=== PATIENT | male | born 1990 | race Caucasian/White ===

== ENCOUNTER 2023-01-12 10:21 | Emergency (ER) | payer BC, MEDICAID, SELFPAY ==
[2023-01-12 10:28] VITALS: BP 138/85; PULSE 71; RESP 20; TEMP 36.6; O2SAT 97; BMI 31.7
--- NOTE | 2023-01-12 10:52 | XR_ITS ---
WS: [id number] Exam: XR chest 1V portable [id number] Date/Time of Exam: 01/12/2023 11:37 AM Reason For Exam: chest pain Findings: The lungs are clear and fully expanded. Costophrenic angles are sharp. No infiltrates. Bronchovascula r relief appears normal. Cardiac silhouette is unremarkable. Bony elements are intact. IMPRESSION: Unremarkable chest radiograph.
--- NOTE | 2023-01-12 10:52 | ECG_ITS ---
[facility] Test Date: 2023-01-12 Pat Name: Nitish Matt Department: Room: Gender: Male [employer] Supervisor: : 1990 Requested By: Timothy Hutchins Order Number: [id number] Dave MD: Roge Reyez M.D. Measurements Intervals Bow Rate: 69 P: 51 CT: 133 QRS: 27 QRSD: 92 T: 5 QT: 372 QTc: 399 Interpretive Statements SINUS RHYTHM No previous ECG available for comparison Electronically Signed On 01-13-2023 14:11:42 LEATHER GRADER by Roge Reyez M.D. [email or web address]
[2023-01-12 11:54] LABS: Basophils % 0.4 %; Eosinophils # 0.2 10^3/uL (0.0-0.8); Eosinophils % 2.7 %; Hematocrit 44.6 % (37-53); Lymphocytes # 1.6 10^3/uL (0.8-4.8); Lymphocytes % 22.6 %; Mean Corpuscular HGB Conc 33.2 g/dL (30-55); Mean Corpuscular Volume 84.5 fl (82-101); Mean Platelet Volume 9.5 fL (7.4-10.4); Monocytes # 0.5 10^3/uL (0.2-0.9); Monocytes % 7.6 %; Neutrophils # 4.71 10^3/uL (1.8-7.7); Neutrophils % 66.1 %; Nucleated Red Blood Cells % 0 %; Platelet Count 254 10^3/cmm (157-399); Red Blood Count 5.28 10^6/uL (3.85-5.65); Red Cell Distribution Width 12.4 % (12.1-15.1); White Blood Count 7.12 10^3/uL (3.29-11.43)
[2023-01-12 12:02] VITALS: BP 153/91; PULSE 80; RESP 15; O2SAT 96
[2023-01-12 12:10] LABS: Troponin(5th) Baseline < 6 ng/L (0-15)
[2023-01-12 12:13] LABS: Alanine Aminotransferase 143 U/L (0-41); Albumin Level 4.8 g/dL (3.5-5.2); Alkaline Phosphatase 83 U/L (40-130); Anion Gap 16.7 (5-19); Aspartate Amino Transferase 157 U/L (0-40); Blood Urea Nitrogen 12 mg/dL (6-20); Calcium 9.9 mg/dL (8.5-10.5); Carbon Dioxide 25 mmol/L (22-29); Chloride 101 mmol/L (98-107); Globulin 2.1 g/dL (1.3-4.6); Glomerular Filtration Rate 87.2 mL/min (90-130); Glucose 98 mg/dL (65-115); Osmolality Calculated 286 mOsm/kg (285-295); Potassium 4.7 mmol/L (3.5-5.1); Sodium 138 mmol/L (136-145); Total Bilirubin 0.8 mg/dL (0.15-1.2); Total Protein 6.9 g/dL (6.6-8.7)
--- NOTE | 2023-01-12 12:23 | W.ED.CHESTPA ---
HPI - Chest Pain General: Chief Complaint: Chest Pain Stated Complaint: chest pain Time Seen by Provider: 01/12/23 11:47 Source: patient Mode of arrival: ambulatory History of Present Illness: 32-year-old male presents emergency room with complaint of chest pain that has had on and off for the last 18 months. He is been seen for it evaluated in the past that is a negative cardiac work-up including serial enzymes and EKGs. He notices with activity even anaerobic activities such as weightlifting it does not exacerbate the chest discomfort at various times she will have increasing intensity of discomfort the last for sometimes as long as an hour and a half and then resolve spontaneously. He has a history of substance abuse he is currently under treatment program and is been clean for the last 2 months denies any hemoptysis any fever sweats or chills. MD complaint: chest pain Onset (ago): month(s) (18) Timing of current episode: episodic Prior episodes: Yes Pain location: left chest Pain radiation: neck and left shoulder Quality: sharp Relieving factors: nothing Exacerbating factors: nothing Associated symptoms: Deny abdominal pain, dyspnea or fever(s) Review of Systems Const: Denies: fever(s) or chills Card: Reports: chest pain Resp: Denies: dyspnea GI: Denies: abdominal pain : Denies: dysuria, urinary frequency or urinary urgency Musc: Denies: neck pain or back pain Skin/Breast: Denies: rash Physical Exam Const: COMMON NORMALS: no acute distress GENERAL APPEARANCE: cooperative and comfortable ORIENTATION/CONSCIOUSNESS: Yes awake, Yes oriented to person, Yes oriented to place and Yes oriented to time HENMT: COMMON NORMALS: normocephalic, atraumatic and hearing grossly normal bilaterally HEAD & SCALP: normocephalic and atraumatic Resp: COMMON NORMALS: normal respiratory effort, No retractions, No use of accessory muscles and clear to auscultation bilaterally AUSCULTATION: clear to auscultation bilaterally Cardio: COMMON NORMALS: regular rate, regular rhythm and No murmurs present (Cardio) RATE: regular rate RHYTHM: regular rhythm GI: COMMON NORMALS: Soft to palpation and No hepatosplenomegaly present AUSCULTATION: Yes normoactive bowel sounds PALPATION: Yes Soft to palpation, No Tenderness to palpation present (GI), No Guarding due to palpation present (GI) and Yes No hepatosplenomegaly present Extremity: COMMON NORMALS: normal to inspection, capillary refill normal, no clubbing, cyanosis or edema, no calf tenderness and no pedal edema Neuro: SENSORIUM/ORIENTATION: Yes oriented to person, Yes oriented to place and Yes oriented to time Skin: COMMON NORMALS: no rashes or lesions noted GENERAL SKIN EXAM: no rashes or lesions noted Course Vital Signs: Vital signs: Vital Signs Temperature 98 F 01/12/23 10:28 Pulse Rate 76 01/12/23 12:36 Respiratory Rate 18 01/12/23 12:36 Blood Pressure 145/94 01/12/23 12:36 Pulse Oximetry 95 01/12/23 12:36 Oxygen Delivery Me thod Room Air 01/12/23 12:02 MDM - Chest Pain Medical Decision Making Patient vital signs are stable oxygen saturation and heart rate are normal no evidence of PE. Does not sound like acute coronary syndrome based on the fact that is not exacerbated by exertion has been going on for 18 months and he has no EKG changes or other significant changes suspect this is GI in nature we will start him on Protonix refer back to his primary care doctor for follow-up and further evaluation if needed. Medical Records I reviewed the patient's medical records. Lab Data I reviewed the patient's lab results. 01/12/23 11:32 01/12/23 11:32 Laboratory Results WBC 7.12 10^3/uL (3.29-11.43) 01/12/23 11:32 RBC 5.28 10^6/uL (3.85-5.65) 01/12/23 11:32 Hgb 14.80 g/dL (11.27-16.99) 01/12/23 11:32 Hct 44.6 % (37-53) 01/12/23 11:32 MCV 84.5 fl (82-101) 01/12/23 11:32 MCH 28.0 pg (27-33) 01/12/23 11:32 MCHC 33.2 g/dL (30-55) 01/12/23 11:32 RDW 12.4 % (12.1-15.1) 01/12/23 11:32 Plt Count 254 10^3/cmm (157-399) 01/12/23 11:32 MPV 9.5 fL (7.4-10.4) 01/12/23 11:32 Neut % (Auto) 66.1 % 01/12/23 11:32 Lymph % (Auto) 22.6 % 01/12/23 11:32 Desha % (Auto) 7.6 % 01/12/23 11:32 Eos % (Auto) 2.7 % 01/12/23 11:32 Baso % (Auto) 0.4 % 01/12/23 11:32 Neut # (Auto) 4.71 10^3/uL (1.8-7.7) 01/12/23 11:32 Lymph # (Auto) 1.6 10^3/uL (0.8-4.8) 01/12/23 11:32 Desha # (Auto) 0.5 10^3/uL (0.2-0.9) 01/12/23 11:32 Eos # (Auto) 0.2 10^3/uL (0.0-0.8) 01/12/23 11:32 Baso # (Auto) 0.0 10^3/uL (0.0-0.1) 01/12/23 11:32 Nucleated RBC % (auto) 0 % 01/12/23 11:32 Nucleated RBCs # 0.0 /100WBC 01/12/23 11:32 Sodium 138 mmol/L (136-145) 01/12/23 11:32 Potassium 4.7 mmol/L (3.5-5.1) 01/12/23 11:32 Chloride 101 mmol/L (98-107) 01/12/23 11:32 Carbon Dioxide 25 mmol/L (22-29) 01/12/23 11:32 Anion Gap 16.7 (5-19) 01/12/23 11:32 BUN 12 mg/dL (6-20) 01/12/23 11:32 Creatinine 1.0 mg/dL (0.7-1.2) 01/12/23 11:32 GFR Calculation 87.2 mL/min (90-130) L 01/12/23 11:32 Glucose 98 mg/dL (65-115) 01/12/23 11:32 Calculated Osmolality 286 mOsm/kg (285-295) 01/12/23 11:32 Calcium 9.9 mg/dL (8.5-10.5) 01/12/23 11:32 Total Bilirubin 0.8 mg/dL (0.15-1.2) 01/12/23 11:32 AST 157 U/L (0-40) H 01/12/23 11:32 ALT 143 U/L (0-41) H 01/12/23 11:32 Alkaline Phosphatase 83 U/L (40-130) 01/12/23 11:32 Troponin T Baseline < 6 ng/L (0-15) 01/12/23 11:32 Total Protein 6.9 g/dL (6.6-8.7) 01/12/23 11:32 Albumin 4.8 g/dL (3.5-5.2) 01/12/23 11:32 Globulin 2.1 g/dL (1.3-4.6) 01/12/23 11:32 All radiology interpretation(s) finalized by discharge Discharge Plan Discharge Patient Disposition: Home Clinical Impression: Atypical chest pain Condition: Stable Prescriptions: New pantoprazole 40 mg tablet,delayed release (DR/EC) 40 mg PO DAILY Qty: 30 0RF No Action fluticasone propionate [Flonase Allergy Relief] 50 mcg/actuation spray,suspension 2 spray intranasal DAILY 7 Days Qty: 16 0RF Rx Instructions: administer into each nostril valacyclovir 1 gram tablet 1,000 mg PO BID 7 Days Qty: 14 0RF chlorpromazine 25 mg tablet 25 mg PO TID PRN (Reason: Anxiety) bupropion HCl 150 mg tablet extended release 24 hr 300 mg PO QAM gabapentin 300 mg capsule 600 mg PO TID quetiapine 50 mg tablet 50 mg PO TID buprenorphine HCl 2 mg tablet, sublingual 4 mg sublingual TID Discharge Orders: Discharge ED (Routine); Ordered 01/12/23 Ordered By: Oscar Thomason Discharge Diet: Usual diet Discharge Activity: Resume usual activity Patient Instructions: Opioid Safety, Pain Management Activity Restrictions/Additional Instructions: Thank you for choosing [facility] for your healthcare needs today. Please realize this is an emergency room and that we are providing you with a medical screening exam and this may not be complete and all inclusive of all the testing and or work up that you may need to determine your ailment or severity of your illness. It is very important that you follow up as instructed or that you return to the Emergency Department should you have concerns or if your condition changes or worsens in any way. You are seen today for chest pain as being ongoing for months. Your EKG and cardiac enzymes are negative chest x-ray is unremarkable suspect this may be secondary to a GI source. Do recommend that you follow-up with your primary care provider for further evaluation we will start you on pantoprazole 40 mg once daily Coding Level of Care Code ED Dna Sequencing Associate for Trish Nath
[2023-01-12 12:36] VITALS: BP 145/94; PULSE 76; RESP 18; O2SAT 95
== END 2023-01-12 12:37 | disposition home or self-care (01) ==
PROVIDERS: Emergency Medicine; Emergency Provider Family Medicine
DX: R07.89 Other chest pain (principal)
CPT/HCPCS: 36415; 71045; 80053; 84484; 85025; 93005; 99285

== ENCOUNTER → 2023-01-18 10:42 | Outpatient (BNVA) | payer BC, MEDICAID, SELFPAY | PROVIDERS: Visit Provider Nurse Practitioner | DX: Z20.2 Contact with and (suspected) exposure to infections with a predominantly sexual mode of transmission (principal) | CPT/HCPCS: 86695; 86696; 87491; 87591 ==